=== PATIENT | female | born 1960 | race Caucasian/White ===

== ENCOUNTER → 2018-06-11 | Outpatient (CLI) | payer OTHER ==
--- NOTE | 2018-06-11 14:13 | Diagnostic Imaging Report ---
PROCEDURE: MRI lumbar spine. TECHNIQUE: Multiplanar, multisequence MRI of the lumbar spine was performed without contrast. INDICATION: Fall in August of 2017. The patient has continued low back pain and bilateral leg numbness. COMPARISON: No prior studies are available for comparison. FINDINGS: Curvature of the lumbar spine is normal. There is grade 1 spinal listhesis of L4 on L5. Vertebral body heights are maintained. No acute compression fracture or geographic marrow lesion is seen. There is multilevel degenerative disc disease with variable disc space narrowing and desiccation. Conus is unremarkable at the T12-L1 level. T12-L1: The central canal is widely patent. Neural foramina are patent. L1-L2: Broad-based disc/osteophyte complex is present. This does result in bilateral lateral recess narrowing. Neural foramina and central canal are widely patent. L2-L3: Central canal is widely patent. There appears to be xgts-ig-psbervcm bilateral neural foraminal narrowing due to broad-based disc/osteophyte complex. L3-L4: There is ligamentous thickening and facet changes present. Central canal is patent. There is moderate bilateral lateral recess and neural foraminal stenosis. L4-L5: Hypertrophic facet changes and ligamentous thickening with broad-based disc/osteophyte complex is noted. This results in severe trefoil stenosis to the canal. There is also severe bilateral lateral recess stenosis and moderate bilateral neural foraminal stenosis. L5-S1: Broad-based disc/osteophyte complex is noted, asymmetric to the right. This produces significant narrowing of the right lateral recess. There is moderate right neural foraminal narrowing. Left neural foramen and lateral recess are patent. Mild central canal narrowing is seen. Paraspinous tissues are unremarkable. IMPRESSION: Multilevel lumbar spondylosis with multilevel central canal, lateral recess or neural foraminal stenosis described level by level above. This is most severe at the L4-L5 level. No acute compression fracture is detected. Dictated by: Dictated on workstation # [id number]
== END ==
LOC: RAD 10:39
PROVIDERS: ATTEND Nurse Practitioner Family
DX: M48.07 Spinal stenosis, lumbosacral region (principal); M47.816 Spondylosis without myelopathy or radiculopathy, lumbar region; M43.16 Spondylolisthesis, lumbar region; M51.36 Other intervertebral disc degeneration, lumbar region
CPT/HCPCS: 72148

== ENCOUNTER → 2021-11-21 | Outpatient (CLI) | payer OTHER ==
[~2021-11-21] MED LIST: GADOTERATE 0.5 MMOL/ML (CLARISCAN) 20 ML VIAL IV ONE
--- NOTE | 2021-11-21 17:34 | Diagnostic Imaging Report ---
PROCEDURE: MRI lumbar spine with and without contrast. TECHNIQUE: Multiplanar, multisequence MRI of the lumbar spine was performed with and without contrast. INDICATION: Low back pain. Difficulty walking. Fall. COMPARISON: 06/11/2018. FINDINGS: Five lumbar-type vertebral bodies are visualized with the last well-formed disc space designated L5-S1. No acute fracture or dislocation is seen in the lumbar spine. Grade 1 anterolisthesis of L4 on L5 is noted. Vertebral body heights are well-maintained. The bone marrow signal is normal. No abnormal enhancement is visualized. The conus terminates at the L1 level. No masses are seen associated with the conus or nerve roots of the cauda equina. No epidural collections are identified. Multilevel degenerative changes are seen in the lumbar spine with disc bulges, facet hypertrophy, and buckling of the ligamentum flavum. T12-L1: No significant spinal canal or foraminal stenosis. L1-L2: No significant spinal canal or foraminal stenosis. L2-L3: Broad-based disc bulge, facet hypertrophy, and buckling of the ligamentum flavum result in moderate spinal canal stenosis and gzoftxds-hf-zdygev bilateral foraminal stenosis. L3-L4: Facet hypertrophy and buckling of the ligamentum flavum result in moderate spinal canal stenosis and moderate right and ffikfvsy-od-zcnvbe left foraminal stenosis. L4-L5: Broad-based disc bulge, facet hypertrophy, and buckling of the ligamentum flavum result in severe spinal canal stenosis and jtsoxlxv-ya-afrkkr bilateral foraminal stenosis. L5-S1: Broad-based disc bulge, facet hypertrophy, and buckling of the ligamentum flavum result in xibouojc-ud-nneizj spinal canal stenosis and severe right and yntt-hm-xtmopasq left foraminal stenosis. Paravertebral soft tissues are unremarkable. IMPRESSION: 1. No acute fracture or dislocation in the lumbar spine. No abnormal enhancement. 2. Multilevel degenerative changes in the lumbar spine, greatest at L4-L5 and L5-S1. 3. Grade 1 anterolisthesis of L4 on L5. Dictated by: Dictated on workstation # [id number]
--- NOTE | 2021-11-21 18:26 | Diagnostic Imaging Report ---
TECHNIQUE: Multiplanar and multisequence MRI of the thoracic spine is performed with and without contrast. REASON FOR EXAM: Back pain. Fall. COMPARISON: None. FINDINGS: No acute fracture or dislocation is seen in the thoracic spine. There is normal alignment. Vertebral body heights are maintained. No suspicious focal osseous lesions. No abnormal enhancement. Intrinsic signal within the thoracic spinal cord is normal. No evidence of cord expansion. No epidural collections. No significant degenerative changes are present in the thoracic spine. No spinal canal or foraminal stenosis. The paraspinal soft tissues are unremarkable. The included lungs are clear. IMPRESSION: 1. No acute fracture or dislocation in the thoracic spine. No abnormal enhancement. 2. Normal intrinsic signal within the thoracic spinal cord. 3. No high-grade spinal canal or foraminal stenosis in the thoracic spine. Dictated by: Dictated on workstation # [id number]
== END ==
LOC: RAD 13:15
PROVIDERS: ATTEND Nurse Practitioner
DX: M47.817 Spondylosis without myelopathy or radiculopathy, lumbosacral region (principal); M43.16 Spondylolisthesis, lumbar region; M54.6 Pain in thoracic spine; W19.XXXA Unspecified fall, initial encounter
CPT/HCPCS: 72157; 72158